=== PATIENT | female | born 1980 | race Hispanic/Latino ===

== ENCOUNTER 2020-06-07 21:59 | Emergency (ER) | payer OTHER ==
[~2020-06-07] VITALS: Ht 165.1 cm; Wt 70.3 kg
[2020-06-07] MEDS ORDERED: ACETAMINOPHEN500 MG PO (22:27)
[2020-06-07] MEDS ORDERED: CLEOCIN HCL300 MG PO (22:27)
[2020-06-07 22:33] VITALS: BP 131/89
== END 2020-06-07 22:33 | disposition left against medical advice (07) ==
LOC: FSED 22:20
DX: S09.93XA Unspecified injury of face, initial encounter (principal)